=== PATIENT | female | born 1985 | race Caucasian/White ===

== ENCOUNTER 2019-07-03 15:38 | Emergency (ER) | payer OTHER ==
[~2019-07-03] VITALS: Ht 172.7 cm; Wt 127.0 kg
[2019-07-03] MEDS ORDERED: IV NORMAL SALINE 1,000ML 1,000 ML IV SCH (16:57)
--- NOTE | 2019-07-03 17:05 | PHYS DOC ---
Adult General Chief Complaint Chief Complaint: ABDOMINAL PAIN HPI HPI Patient is a 34-year-old female who presents with complaint of left lower abdominal pain that started a couple of days ago and is progressively worsening. She states that the pain does wax and wane and currently is about a 4 out of 10 but states that at its worse it's been an 8 out of 10. She states that it initially started in her left mid abdomen and has gradually radiated down into the lower abdomen, radiating into the groin. At time she describes the pain as dull and wanted severe she states this morning sharp pain. She does indicate that she has had some nausea associated with the pain. Patient states that there were no alleviating factors.[] (DANIEL PARKER Jr. DO) Review of Systems Review of Systems Constitutional: Denies fever or chills [] Respiratory: Denies cough or shortness of breath [] Cardiovascular: No additional information not addressed in HPI [] GI: Complains of left lower abdominal pain with nausea. Denies vomiting or diarrhea [] : Denies dysuria or hematuria [] Musculoskeletal: Denies back pain or joint pain [] All other systems were reviewed and found to be within normal limits, except as documented in this note. (DANIEL PARKER Jr. DO) Physical Exam Physical Exam Constitutional: Well developed, well nourished, no acute distress, non-toxic appearance. [] HENT: Normocephalic, atraumatic, bilateral external ears normal, oropharynx mois t, no oral exudates, nose normal. [] Eyes: PERRLA, EOMI, conjunctiva normal, no discharge. [] Neck: Normal range of motion, no tenderness, supple. [] Cardiovascular: Regular rate and rhythm[] Lungs & Thorax: Bilateral breath sounds clear to auscultation [] Abdomen: Bowel sounds normal, soft, with left lower abdominal tenderness. [] Skin: Warm, dry, no erythema, no rash. [] Extremities: No tenderness, no cyanosis, no clubbing, ROM intact. [] Neurologic: Alert and oriented X 3, no focal deficits noted. [] (DANIEL PARKER Jr. DO) EKG EKG [] (DANIEL PARKER Jr. DO) Radiology/Procedures Radiology/Procedures [] (DANIEL PARKER Jr. DO) Radiology/Procedures [address] [id number] IMAGING REPORT Signed PATIENT: MARVA SUTTON ACCOUNT: [id number] : 1985 LOCATION: ER AGE: 34 SEX: F EXAM STATUS: REG ER ORD. PHYSICIAN: DANIEL PARKER Jr., DO REASON: Left lower abd pain PROCEDURE: CT ABDOMEN PELVIS WO CONTRAST Exam: CT abdomen and pelvis without contrast INDICATION: Left lower abdominal pain TECHNIQUE: Sequential axial images through the abdomen and pelvis obtained without IV contrast. Sagittal and coronal reformatted images were reconstructed from the axial data and reviewed. Comparisons: None FINDINGS: Heart size is normal. No pericardial effusion. Visualized lung bases are clear. No pleural effusion. Liver, spleen, pancreas and adrenals are unremarkable. Gallbladder is absent. No perinephric inflammation or hydronephrosis. No renal or ureteral calculi are identified. Bladder is distended and appears thin-walled. Uterus is not enlarged. Cystic lesions in the adnexa bilaterally largest on the left measuring 5.7 x 4.6 cm. Large and small bowel are unremarkable. Appendix is not identified. No free intra-abdominal air or fluid. No obstruction. Abdominal aorta has a normal course and caliber. No enlarged abdominal lymph nodes are identified. No suspicious osseous lesions or acute fractures. IMPRESSION: Cystic lesions in the adnexa bilaterally larger on the left measuring 5.7 x 4.6 cm. This likely representing cystic change in the ovaries however are incompletely characterized on CT. Ultrasound would better evaluate. Exposure: One or more of the following in the visualized dose reduction techniques were utilized for this examination: 1. Automated exposure control 2. Adjustment of the MA and/or KV according to patient size 3. Use of iterative of reconstructive technique Electronically signed by: Jennifer Perez MD (07/03/2019 6:33 PM) [facility] DICTATED AND SIGNED BY: JENNIFER PEREZ MD DATE: 07/03/19 183 CC: DANIEL PARKER Jr. DO; ALY DOE DO; YOLY BRIDGES MD ~ (YOLY BRIDGES MD) Course & Med Decision Making Course & Med Decision Making Pertinent Labs and Imaging studies reviewed. (See chart for details) Patient moved to room upon arrival was evaluated by your medical staff after which an IV was established and blood work was drawn. Blood work and UA returned essentially unremarkable. A CT of the abdomen and pelvis has been ordered for this patient and patient is being signed out to the oncoming ER physician, Dr. Bridges at 6:35 PM. (DANIEL PARKER Jr., DO) Course & Med Decision Making Addendum by Dr. Yoly Bridges at 1920: I took over care of patient from Dr. Parker at 1835. I reevaluated the patient. At this time patient states that her pain has resolved. CT imaging showed no evidence of acute ureteral stone but does show significant evidence of adnexal cyst presumed to be ovarian cyst. The patient does confirm that she has been told in the past with previous imaging that she has significantly sized ovarian cysts. Given resolution of symptoms and normal vital signs at this time, I have low suspicion for active ovarian torsion. I do suspect however that the patient could be experiencing pain symp toms related to her cysts. I recommend the patient follow-up with [facility] within the next 3-4 days for reevaluation. I will defer ultrasound imaging to the [facility] will follow-up with the patient. Advised return to emergency department for any worsening symptoms. Patient was understanding and in agreement with treatment plan. (YOLY BRIDGES MD) Dragon Disclaimer Dragon Disclaimer This electronic medical record was generated, in whole or in part, using a voice recognition dictation system. (DANIEL PARKER Jr., DO) Departure Departure: Impression: Primary Impression: Abdominal pain Additional Impression: Ovarian cyst Disposition: 01 HOME, SELF-CARE Condition: IMPROVED Referrals: ALY DOE DO (PCP) Boom Haynes Jr, MD Patient Instructions: Ovarian Cyst Additional Instructions: Follow-up with Dr. Haynes of [facility] in the next 4 days for reevaluation. Return to the emergency department for any worsening symptoms. Problem Qualifiers Primary Impression: Abdominal pain Abdominal location: left lower quadrant Qualified Codes: R10.32 - Left lower quadrant pain Additional Impression: Ovarian cyst Laterality: left Qualified Codes: N83.202 - Unspecified ovarian cyst, left side DANIEL PARKER Jr., DO Jul 03, 2019 17:05 YOLY BRIDGES MD Jul 03, 2019 19:27
[2019-07-03] MEDS ORDERED: KETOROLAC 30 MG/ML VIAL. IV ONE (17:30)
[2019-07-03 17:33] LABS: BILIRUBIN,URINE NEG (NEG); CLARITY,URINE CLEAR; COLOR,URINE YELLOW; GLUCOSE,URINE NEG (NEG)
[2019-07-03 17:34] LABS: BACTERIA,URINE 0 /HPF (0-FEW); NITRITE,URINE NEG (NEG); RBC,URINE 0 /HPF (0-2); SQUAMOUS EPITHELIAL CELL,UR OCC /LPF; UROBILINOGEN,URINE 0.2 mg/dL (0.2 mg/dL); WBC,URINE OCC /HPF (0-4)
[2019-07-03 17:41] LABS: BASO % 0 % (0-3); EOS # 0.1 x10^3/uL (0.0-0.7); EOS % 1 % (0-3); HEMATOCRIT 39.6 % (36.0-47.0); HEMOGLOBIN 13.2 g/dL (12.0-15.5); LYMPH % 33 % (24-48); MEAN CORPUSCULAR HEMOGLOBIN 28 pg (25-35); MEAN CORPUSCULAR HGB CONC 33 g/dL (31-37); MEAN CORPUSCULAR VOLUME 83 fL (79-100); MONO # 0.4 x10^3/uL (0.0-1.1); MONO % 6 % (0-9); NEUT # 3.8 x10^3uL (1.8-7.7); NEUT % 61 % (31-73); PLATELET COUNT 179 x10^3/uL (140-400); RED BLOOD COUNT 4.77 x10^6/uL (3.50-5.40); RED CELL DISTRIBUTION WIDTH 15.1 % (11.5-14.5); WHITE BLOOD COUNT 6.3 x10^3/uL (4.0-11.0)
[2019-07-03 17:49] LABS: CALCIUM 9.1 mg/dL (8.5-10.1); CREATININE 0.7 mg/dL (0.6-1.0); GFR 95.2; POTASSIUM 3.9 mmol/L (3.5-5.1); TOTAL BILIRUBIN 0.4 mg/dL (0.2-1.0); TOTAL PROTEIN 8.2 g/dL (6.4-8.2)
--- NOTE | 2019-07-03 18:36 | RAD ---
Exam: CT abdomen and pelvis without contrast INDICATION: Left lower abdominal pain TECHNIQUE: Sequential axial images through the abdomen and pelvis obtained without IV contrast. Sagittal and coronal reformatted images were reconstructed from the axial data and reviewed. Comparisons: None FINDINGS: Heart size is normal. No pericardial effusion. Visualized lung bases are clear. No pleural effusion. Liver, spleen, pancreas and adrenals are unremarkable. Gallbladder is absent. No perinephric inflammation or hydronephrosis. No renal or ureteral calculi are identified. Bladder is distended and appears thin-walled. Uterus is not enlarged. Cystic lesions in the adnexa bilaterally largest on the left measuring 5.7 x 4.6 cm. Large and small bowel are unremarkable. Appendix is not identified. No free intra-abdominal air or fluid. No obstruction. Abdominal aorta has a normal course and caliber. No enlarged abdominal lymph nodes are identified. No suspicious osseous lesions or acute fractures. IMPRESSION: Cystic lesions in the adnexa bilaterally larger on the left measuring 5.7 x 4.6 cm. This likely representing cystic change in the ovaries however are incompletely characterized on CT. Ultrasound would better evaluate. Exposure: One or more of the following in the visualized dose reduction techniques were utilized for this examination: 1. Automated exposure control 2. Adjustment of the MA and/or KV according to patient size 3. Use of iterative of reconstructive technique Electronically signed by: Jennifer Roberts MD (07/03/2019 6:33 PM) [facility]
[2019-07-03 19:09] VITALS: BP 155/80
== END 2019-07-03 19:37 | disposition home or self-care (01) ==
LOC: ER 15:38
DX: N83.202 Unspecified ovarian cyst, left side (principal)
CPT/HCPCS: 36415; 74176; 80053; 81001; 81025; 85025; 96374; 99285; J1885; J7030